=== PATIENT | female | born 1985 | race Caucasian/White ===

== ENCOUNTER 2018-07-17 14:56 | Emergency (ER) | payer OTHER, MEDICAID ==
[~2018-07-17] VITALS: Ht 165.1 cm; Wt 63.5 kg
[2018-07-17] MEDS ORDERED: ADDERALL 15 MG15 MG PO (15:09)
[2018-07-17] MEDS ORDERED: BACTRIM DS TAB1 EAC1 PO (15:34)
[2018-07-17] MEDS ORDERED: DIFLUCAN150 M1 PO (15:34)
[2018-07-17 15:48] VITALS: BP 123/79
== END 2018-07-17 15:49 | disposition home or self-care (01) ==
LOC: M.ERS 14:56
DX: N76.0 Acute vaginitis (principal); Z91.041 Radiographic dye allergy status